=== PATIENT | female | born 1930 | race Caucasian/White ===

== ENCOUNTER 2019-11-03 16:51 | Emergency (ER) | payer MEDICARE ==
--- NOTE | 2019-11-03 17:36 | EDM.PDOC ---
<Jane Patrick - Last Filed: 11/03/19 18:11> ED HPI GENERAL MEDICAL PROBLEM - General Chief Complaint: Lower Extremity Injury/Pain Stated Complaint: POSSIBLE BLOOD CLOT IN LT LEG Time Seen by Provider: 11/03/19 17:33 Source of Information: Reports: Patient History Limitations: Reports: No Limitations - History of Present Illness INITIAL COMMENTS - FREE TEXT/NARRATIVE: pt arrived with bilateral leg swelling. The rt did go down some but the rt did not. She had a history of not taking her lasix for 4 days because she ran out. She does have a history of lung CA. Onset: Gradual Duration: Hour(s): Location: Reports: Lower Extremity, Left, Lower Extremity, Right Associated Symptoms: Reports: Other ( swelling and tenderness in both legs. ) Ankle Pain Score (Numeric/FACES): 5 - Related Data Allergies Allergy/AdvReac Type Severity Reaction Status Date / Time Penicillins Allergy Rash Verified 12/12/13 13:58 potassium Allergy Cannot Verified 12/12/13 13:58 Remember Sulfa (Sulfonamide Allergy Rash Verified 12/12/13 13:58 Antibiotics) Home Meds: Home Meds Hydrochlorothiazide/Lisinopril [Lisinopril-HCTZ 20-25 MG] 1 tab PO DAILY [History] Hydrocortisone Butyrate/Emoll [Locoid 0.1% Lipocream] 12/12/13 [History] Ketoconazole [Ketoconazole 2%] 1 applic TOP BID 12/12/13 [History] Multivitamin [Multi-Vitamin Daily] 1 each PO 12/12/13 [History] Furosemide [Lasix] 20 mg PO 11/03/19 [History] Past Medical History Cardiovascular History: Reports: Heart Valve Replacement Respiratory History: Reports: [employer] History: Reports: Musculoskeletal History: Reports: Arthritis Oncologic (Cancer) History: Reports: Lung Dermatologic History: Reports: Other (See Below) Other Dermatologic History: swelling L lower leg anlkes - Past Surgical History Musculoskeletal Surgical History: Reports: None Social & Family History - Tobacco Use Smoking Status *Q: Former Smoker Years of Tobacco use: 30 Used Tobacco, but Quit: Yes Month/Year Tobacco Last Used: 40 - Caffeine Use Caffeine Use: Reports: Coffee - Recreational Drug Use Recreational Drug Use: No Review of Systems - Review of Systems Review Of Systems: See Below Constitutional: Reports: No Symptoms Eyes: Reports: No Symptoms Ears: Reports: No Symptoms Nose: Reports: No Symptoms Mouth/Throat: Reports: No Symptoms Respiratory: Reports: No Symptoms Cardiovascular: Reports: No Symptoms GI/Abdominal: Reports: No Symptoms Genitourinary: Reports: No Symptoms Musculoskeletal: Reports: Other ( swelling and tenderness in both legs. ) Neurological: Reports: No Symptoms ED EXAM, GENERAL - Physical Exam Exam: See Below Free Text/Narrative:: pt arrived with bilateral swollen legs. Worse on the left. She does have a history of rafael Ca Exam Limited By: No Limitations General Appearance: Alert, Anxious Ears: Normal TMs Nose: Normal Inspection Throat/Mouth: Normal Inspection Head: Atraumatic Neck: Normal Inspection Respiratory/Chest: No Respiratory Distress Cardiovascular: Other (pt has a mitral murmur from the clip) GI/Abdominal: Soft, Non-Tender (Female) Exam: Deferred Extremities: Other (both legs are swollen but the left is more than the rt. She does have a positive Homans sign. She is tender on the left on the inner left thigh. her DDimer is borderline) Course - Vital Signs Last Recorded V/S: Last Vital Signs Temp 35.3 C L 11/03/19 17:04 Pulse 76 11/03/19 17:57 Resp 18 11/03/19 17:04 BP 113/89 11/03/19 17:57 Pulse Ox - Orders/Labs/Meds Orders: Active Orders 24 hr Category Date Time Status VL Duplex Lwr Ext Veins Comp [US] Stat Exams 11/03/19 17:31 Taken Labs: Laboratory Tests 11/03/19 11/03/19 11/03/19 Range/Units 17:42 17:42 17:42 WBC 9.7 (4.5-11.0) K/uL RBC 3.86 (3.30-5.50) M/uL Hgb 11.4 L (12.0-15.0) g/dL Hct 37.5 (36.0-48.0) % MCV 97 (80-98) fL MCH 30 (27-31) pg MCHC 30 L (32-36) % Plt Count 416 H (150-400) K/uL Neut % (Auto) 63 (36-66) % Lymph % (Auto) 20 L (24-44) % Sutton % (Auto) 13 H (2-6) % Eos % (Auto) 3 (2-4) % Baso % (Auto) 1 (0-1) % D-Dimer, Quantitative 665 H (0.0-400.0) ng/mL Sodium 140 (140-148) mmol/L Potassium 4.9 (3.6-5.2) mmol/L Chloride 104 (100-108) mmol/L Carbon Dioxide 28 (21-32) mmol/L Anion Gap 7.7 (5.0-14.0) mmol/L BUN 20 H (7-18) mg/dL Creatinine 1.0 (0.6-1.0) mg/dL Est Cr Clr Drug Dosing 32.17 mL/min Estimated GFR (MDRD) 52 L (>60) Glucose 103 (74-106) mg/dL Calcium 8.7 (8.5-10.1) mg/dL Total Bilirubin 0.3 (0.2-1.0) mg/dL AST 19 (15-37) U/L ALT 22 (12-78) U/L Alkaline Phosphatase 90 (46-116) U/L NT-Pro-B Natriuret Pep (5-450) pg/mL Total Protein 5.8 L (6.4-8.2) g/dL Albumin 2.4 L (3.4-5.0) g/dL Globulin 3.4 (2.3-3.5) g/dL Albumin/Globulin Ratio 0.7 L (1.2-2.2) 11/03/19 Range/Units 18:00 WBC (4.5-11.0) K/uL RBC (3.30-5.50) M/uL Hgb (12.0-15.0) g/dL Hct (36.0-48.0) % MCV (80-98) fL MCH (27-31) pg MCHC (32-36) % Plt Count (150-400) K/uL Neut % (Auto) (36-66) % Lymph % (Auto) (24-44) % Sutton % (Auto) (2-6) % Eos % (Auto) (2-4) % Baso % (Auto) (0-1) % D-Dimer, Quantitative (0.0-400.0) ng/mL Sodium (140-148) mmol/L Potassium (3.6-5.2) mmol/L Chloride (100-108) mmol/L Carbon Dioxide (21-32) mmol/L Anion Gap (5.0-14.0) mmol/L BUN (7-18) mg/dL Creatinine (0.6-1.0) mg/dL Est Cr Clr Drug Dosing mL/min Estimated GFR (MDRD) (>60) Glucose (74-106) mg/dL Calcium (8.5-10.1) mg/dL Total Bilirubin (0.2-1.0) mg/dL AST (15-37) U/L ALT (12-78) U/L Alkaline Phosphatase (46-116) U/L NT-Pro-B Natriuret Pep 625 H (5-450) pg/mL Total Protein (6.4-8.2) g/dL Albumin (3.4-5.0) g/dL Globulin (2.3-3.5) g/dL Albumin/Globulin Ratio (1.2-2.2) - Re-Assessments/Exams Free Text/Narrative Re-Assessment/Exam: 11/03/19 18:14 borderline ddimer. Departure - Departure Disposition: Home, Self-Care 01 Clinical Impression: Dependent edema - Discharge Information Referrals: Isaac Nuñez MD [Primary Care Provider] - Forms: ED Department Discharge Additional Instructions: Elevate your legs above your heart as much as possible. Avoid salt or salty foods. Continue your diuretic. Consider support stockings. Recheck with your provider as needed. Sepsis Event Note - Evaluation Sepsis Screening Result: No Definite Risk - Focused Exam Vital Signs: Vital Signs Temp Pulse Resp BP 11/03/19 17:57 76 113/89 11/03/19 17:04 35.3 C L 87 18 141/74 H Date Exam was Performed: 11/03/19 Time Exam was Performed: 18:11 <Irwin Banuelos - Last Filed: 11/03/19 19:02> Course - Vital Signs Text/Narrative:: Venous doppler studies negative for DVT Departure - Departure Time of Disposition: 19:00 Condition: Fair - Discharge Information *PRESCRIPTION DRUG MONITORING PROGRAM REVIEWED*: Not Applicable *COPY OF PRESCRIPTION DRUG MONITORING REPORT IN PATIENT ANTIONETTE: Not Applicable Sepsis Event Note - Focused Exam Date Exam was Performed: 11/03/19 Time Exam was Performed: 19:01
--- NOTE | 2019-11-04 09:50 | US ---
VL Duplex Lwr Ext Veins Comp BILATERAL HISTORY: Leg swelling FINDINGS: The deep veins of the lower extremities bilaterally demonstrate normal augmentation and compressibility. No evidence for deep venous thrombosis. IMPRESSION: No evidence of deep venous thrombosis in either lower extremity
== END 2019-11-03 19:08 | disposition home or self-care (01) ==
LOC: JP.ED 16:51
DX: R60.9 Edema, unspecified (principal); Z87.891 Personal history of nicotine dependence; Z79.899 Other long term (current) drug therapy; Z88.0 Allergy status to penicillin; Z88.2 Allergy status to sulfonamides; Z88.8 Allergy status to other drugs, medicaments and biological substances
CPT/HCPCS: 36415; 80053; 83880; 85025; 85379; 93970; 93970-26; 99282; 99284-25